=== PATIENT | female | born 1945 | race Caucasian/White ===

== ENCOUNTER 2020-09-30 08:38 | Outpatient (CLI) | payer MEDICARE ==
--- NOTE | 2020-09-30 09:47 | CT ---
CT Abdomen Pelvis W WO con: 09/30/2020 9:00 AM CLINICAL HISTORY: Hematuria. TECHNIQUE: Multiple contiguous axial images were obtained and a CT of the abdomen and pelvis without and with IV contrast. Postcontrast images were obtained in the nephrographic and excretory phases. Sagittal and coronal reformats were performed. COMPARISON: 09/11/2020 FINDINGS: Kidneys and Urinary Tract: Right kidney and ureter: No calculi. No hydronephrosis or hydroureter. No renal mass or other lesions . No urothelial lesions: no filling defect, dilation, stricture or wall thickening. Left kidney and ureter: No calculi. No hydronephrosis or hydroureter. There is a tiny subcentimeter h ypodensity in the superior pole of the kidney which may represent a cyst. No urothelial lesions: no filling defect, dilation, stricture or wall thickening. Urinary bladder: Normal, no calculi, mass or other lesions. Remainder of Abdomen and Pelvis: Liver: Small subcentimeter hypodensity in the liver likely represents a cyst Gallbladder and biliary system: Normal. No CT evident gallstones. No biliary ductal dilatation. Spleen: Normal. Pancreas: Normal. Adrenal glands: Normal. GI tract: Scattered diverticula in the colon Abdominal aorta and its major branches: Atherosclerotic calcifications in the aorta. No aneurysm. Peritoneum/retroperitoneum: Normal. No ascites. No adenopathy. Pelvic structures: Normal. No pelvic lymphadenopathy. Body wall and musculoskeletal: Degenerative changes in the spine. Visualized lower thorax: Normal. No pulmonary parenchymal mass or pleural effusion. IMPRESSION: 1. Likely small left renal cyst 2. Diverticulosis 2. Hepatic cyst
[2020-09-30] MEDS ORDERED: Iopamidol 370 76% 100 ML VIAL ONE (10:25)
== END 2020-09-30 08:39 | disposition home or self-care (01) ==
LOC: CT 08:38
PROVIDERS: ATTEND Urology
DX: R31.0 Gross hematuria (principal); K57.30 Diverticulosis of large intestine without perforation or abscess without bleeding; K76.89 Other specified diseases of liver
CPT/HCPCS: 74178; 82565; Q9967